=== PATIENT | female | born 1985 | race Caucasian/White ===

== ENCOUNTER 2017-05-15 23:41 | Emergency (ER) | payer OTHER ==
[~2017-05-15 23:41] MED LIST: ASPIR LOW81 MG PO; COL100 PO; GLU850 PO; HUMI SC; HUMULOG; LAC PO; LANTUS SOLOS100 U/M1 SC; LANTUS SOLOS100 U/M1 SQ; LEVAQUIN250 MG PO; LEVOTHYROXIN0.075 M2 PO; LIPI20 PO; METFORMIN HCL500 MG PO; NORCO1 TA2 PO; REG5 PO; VITAMIN D32000 I2 PO
[2017-05-16 01:49] LABS: BASOPHIL % 0.3 % (0-2); PLATELET COUNT 343 x10^3mcL (130-400)
[2017-05-16 01:55] LABS: RED CELL DISTRIBUTION WIDTH 15.5 % (11.5-14.5)
[2017-05-16 01:59] LABS: CALCIUM 8.5 mg/dL (8.5-10.1); CARBON DIOXIDE 26.6 mmol/L (21-32); CHLORIDE SERUM 106 mmol/L (98-107); CREATININE SERUM 0.9 mg/dL (0.6-1.0); GFR1 > 60 mL/min; GLUCOSE SERUM 166 mg/dL (74-106); SODIUM SERUM 140 mmol/L (136-145)
[2017-05-16 02:03] LABS: ALBUMIN 3.1 g/dL (3.4-5.0); ALKALINE PHOSPHATASE 75 U/L (46-116); ALT/SGPT 13 U/L (14-59); AMYLASE 115 U/L (25-115); AST/SGOT 13 U/L (15-37); BILIRUBIN TOTAL 0.33 mg/dL (0.20-1.00); LIPASE 129 IU/L (73-393); TOTAL PROTEIN, SERUM 7.6 g/dL (6.4-8.2)
[2017-05-16 04:08] VITALS: BP 129/73
== END 2017-05-16 04:08 | disposition home or self-care (01) ==
LOC: ED 23:41
PROVIDERS: Emergency Medicine
DX: N39.0 Urinary tract infection, site not specified (principal); E78.00 Pure hypercholesterolemia, unspecified; I10 Essential (primary) hypertension; E11.9 Type 2 diabetes mellitus without complications; Z79.4 Long term (current) use of insulin; Z79.84 Long term (current) use of oral hypoglycemic drugs; Z79.82 Long term (current) use of aspirin
CPT/HCPCS: J3010; Q0092; Q0162

== ENCOUNTER 2019-04-06 08:52 | Emergency (ER) | payer MEDICAID ==
[~2019-04-06] VITALS: Ht 160 cm; Wt 78.5 kg
[2019-04-06 09:08] VITALS: BP 117/72; Ht 160 cm; Wt 78.5 kg
== END 2019-04-06 10:40 | disposition home or self-care (01) ==
LOC: ED 08:52
DX: M77.9 Enthesopathy, unspecified (principal); I10 Essential (primary) hypertension; E11.9 Type 2 diabetes mellitus without complications; E78.00 Pure hypercholesterolemia, unspecified; E03.9 Hypothyroidism, unspecified
CPT/HCPCS: A4570; Q0092